=== PATIENT | female | born 2005 | race Caucasian/White ===

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

== ENCOUNTER 2024-11-04 09:40 | Emergency (ER) | payer OTHER, SELFPAY ==
[2024-11-04 09:56] VITALS: BP 109/71; PULSE 105; RESP 16; TEMP 37.4; O2SAT 100
--- NOTE | 2024-11-04 10:07 | ED_ITS ---
HPI - URI/Sore Throat General Chief Complaint: Upper Respiratory Infection Stated Complaint: SORE THROAT Source: patient Mode of arrival: ambulatory Limitations: no limitations History of Present Illness HPI Narrative: Patient presents to [facility] with complaints of sore throat and congestion for 1 day. She has not been taking anything [id number]. Denies any shortness of breath, fevers, nausea, vomiting, or difficulty swallowing. Related Data Allergies Allergy/AdvReac Type Severity Reaction Status Date / Time Penicillins Allergy Mild Rash Verified 11/04/24 09:52 Review of Systems Review of Systems: CONSTITUTIONAL: Denies body aches, fever, chills, or sweats. EYES: Denies visual changes, redness, or discharge. ENT: Reports sore throat. Denies rhinorrhea, congestion, or otalgia. CARDIOVASCULAR: Denies chest pain, palpitations, or edema. RESPIRATORY: Denies dyspnea. GASTROINTESTINAL: Denies abdominal pain, nausea, vomiting, or diarrhea. SKIN: Denies rash. NEUROLOGIC: Denies headache. All systems reviewed & are unremarkable except as noted in HPI and below PMFSH Past Medical History Medical History GERD (gastroesophageal reflux disease) Nausea and vomiting Surgical History Surgical History H/O esophagogastroduodenoscopy Family History Family History Father Diabetes mellitus Social History Social History Smoking status: Never smoker Alcohol intake: current Alcohol use details: occasional use Substance use: current Substance use type: marijuana Other substance usage details: daily marijuana use Do You Feel Safe in your Home?: Yes Lack of Transportation: No Lack of Food: Never True Current Housing: I Have Housing Concerned About Future Housing: No Difficulty Paying Gas/Electric Bills: No Difficulty Paying for Meds: No Currently Unemployed: No Education: Don't Know Living arrangements: with friend(s) Occupation/Education: occupation 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 Please see nursing chart for further information. There is no relevant family history pertinent to the presenting complaint. Exam Narrative: GENERAL: Ill-appearing, ?no acute distress. EYES: ?conjunctivae clear ENT: Mucous membranes moist. TM pearly nobles with normal light reflex bilaterally; no tragal tenderness. Oropharynx erythematous without lesions. Tonsils enlarged and without exudate. No drooling, no hoarseness, no trismus, uvula midline. No tripod positioning, hot potato voice, or soft palate swelling. NECK: Supple. No lymphadenopathy CHEST: Clear to auscultation, breath sounds equal. ?No respiratory distress, speaks in full sentences. HEART: Regular rate and rhythm. No murmur heard. SKIN: Warm, dry, no rash. NEURO: Alert and oriented x3.? Course Course Level of Care: Express Care Visit Vital Signs Vital signs: Vital Signs Temperature 99.4 F 11/04/24 09:56 Pulse Rate 105 H 11/04/24 09:56 Respiratory Rate 16 11/04/24 09:56 Blood Pressure 109/71 11/04/24 09:56 Pulse Oximetry 100 11/04/24 09:56 Temperature 99.4 F 11/04/24 09:56 Pulse Rate 105 H 11/04/24 09:56 Respiratory Rate 16 11/04/24 09:56 Blood Pressure 109/71 11/04/24 09:56 Pulse Oximetry 100 11/04/24 09:56 MDM - URI/Sore Throat MDM Narrative Medical decision making narrative: Discussed physical exam findings. Advised supportive measures and signs/symptoms to go to the ER. Antibiotic given for strep throat. Pt is appropriate for outpatient treatment and follow up. Differential Diagnosis Differential diagnosis: Likely upper respiratory infection, viral infection, pharyngitis and other (strep throat) Lab Data Attestation: I reviewed the patient's lab results. Critical Care Time Critical Care Time Critical Care Time: No Discharge Plan Discharge Clinical Impression: Strep throat Patient Disposition: Home Condition: Stable Instructions: Antibiotic Form, Strep Throat (ED) Additional Instructions: Take antibiotic as prescribed. Recommendations: Flonase spray and Zyrtec for sinus congestion Tylenol every 8 hours as needed for pain/fever Soft foods, cool liquids, warm tea. Gargle with warm saltwater twice a day. Chloraseptic spray and throat lozenges. Rest and stay hydrated. --Follow up with your PCP --Go to the ER immediately if you cannot swallow your saliva, trouble breathing/wheezing, throat swelling, pain is persistent and severe Patient Language: Moldovan Prescriptions: New cephalexin 500 mg capsule 500 mg PO Q12H 10 Days Qty: 20 0RF No Action pantoprazole 40 mg tablet,delayed release (DR/EC) 40 mg PO DAILY Qty: 90 2RF Follow-up/Referrals: Liz Salinas APRN [Primary Care Provider] - Stand Alone Forms: Work/School Release IP Time of Disposition: 10:13
[2024-11-05 11:57] LABS: EDSTREPNEGPOS1 Positive (Negative)
== END 2024-11-04 10:19 | disposition home or self-care (01) ==
PROVIDERS: PCP Nurse Practitioner Family
DX: J02.0 Streptococcal pharyngitis (principal); F12.90 Cannabis use, unspecified, uncomplicated; K21.9 Gastro-esophageal reflux disease without esophagitis
CPT/HCPCS: 87880; 99213; G0463

== ENCOUNTER 2025-06-08 11:33 | Emergency (ER) | payer OTHER, SELFPAY ==
--- NOTE | ~2025-06-08 | XR_ITS ---
Examination: XR ankle RT min 3V Clinical History: injury Comparison: None Technique: 4 views right ankle Findings/impression: 1. No fracture or dislocation right ankle. Reviewed, dictated and finalized at location R. CAL INFORMATION OFFICER
--- OUTSIDE RECORDS SUMMARY | 2025-06-08 11:35 | XMS_ITS | Clinical Summary ---
Author Organization [facility] Address [address] [place] [address] Care Team Providers Care Meal Grinder Tender Name Role Phone None, Provider MD Primary Care Provider Unavaila ble Allergies Active Allergy Reactions Criticality Noted Date Comments Penicillins Rash,Other (see comment) Medium 08/15/2019 Pt states she was told she has been allergic since she was a baby Medications LORazepam (ATIVAN) 1 MG tabletIndicatio ns:Anxiety Take 1 tablet (1 mg total) by mouth every 8 (eight) hours as needed for Anxiety. 10 tablet 3 Active Additional Information Patient not taking.Reported on 09/04/2024 famotidine (PEPCID) 20 MG tablet Take 1 tablet (20 mg total) by mouth nightly at bedtime. 30 tablet 3 Active Additional Information Patient not taking.Reported on 09/04/2024 magnesium-alumi num-simethicone (MYLANTA MAXIMUM STRENGTH) 400-400-40 MG/5ML suspension Take 15 mLs by mouth nightly at bedtime. 355 mL 3 Active Additional Information Patient not taking.Reported on 09/04/2024 clobetasol (TEMOVATE) 0.05 % external solution Apply topically 2 (two) times daily. 5 Active ketoconazole (NIZORAL) 2 % shampoo Apply to wet hair, leave on for 3 minutes, then rinse; three times weekly. 30 days supply 5 Active pantoprazole EC (PROTONIX) 40 MG tablet Take 1 tablet (40 mg total) by mouth daily. Active Active Problems No known active problems Immunizations Immunization Administration Dates Next Due Daptacel 04/19/2005 Dtap 02/19/2009, 7,06/24/2005,02/02 FLUCELVAX (ccIIV3, TRIVALENT, 0.5mL) 07/24/2024 Flumist (Intranasal LAIV4) 05/08/2015,03/27/2014 Flumist (Intranasal) 04/12/2013,05/18/20 12,06/03/2011,09/2010 HPV GARDASIL 9-VALENT 07/21/2018,04/21/2018,02/2017 Hepatitis A (Generic) 12/26/2006,03/24/2006 Hepatitis A (Havrix [address]) 03/24/2006 Hepatitis B Pediatric 09/20/2005,01/25/2005,12/03 Hib 07/19/2006, 5,04/19/2005,02/02 Hib (Generic) 07/19/2006, 5,04/19/2005,02/02 Influenza (FluMist) 05/08/2015,03/27/2014 Influenza (Generic) 06/03/2011, 1,03/26/2009,11/2007,05/02/2007,06/24/2005 Influenza Adult (Generic) 05/07/2020,12/2018,04/21/2018,11/2016,06/04/2016 Ipol (Polio Vaccine) 04/19/2005 MENINGOCOCCAL A C Y&W-135 oligosaccharide (MENVEO) 04/08/2022 MMR 02/19/2009,12/23/2005 Menactra 12/29/2015 Polio IPV (Ipol) 02/19/2009, 6,04/19/2005,02/02 Prevnar(Pcv 7) 12/23/2005, 5,04/19/2005,02/02 Tdap (Adacel) 12/29/2015 Varicella (Generic) 02/19/2009,03/24/2006 Family History Medical History Relation Comments Mental Health Paternal Grandmother Relation Status Comments Paternal Grandmother Social History Tobacco Use Types Packs/Day Years Used Date Smoking Tobacco: Never Smokeless Tobacco: Never Tobacco Cessation:Counseling Given: No Alcohol Use Standard Drinks/Week Comments Not Currently 0 (1 standard drink = 0.6 oz pur e alcohol) AUDIT-C Answer Date Recorded Frequency of Alcohol Consumption Never 04/22/2019 Average Number of Drinks Not on file 019 Frequency of Binge Drinking Not on file 04/04 Comments No Sex and Gender Information Value Date Recorded Sex Assigned at Not on file Legal Sex Female 5:01 PM CDT Gender Identity Not on file Sexual Orientation Not on file Last Filed Vital Signs Vital Sign Reading Time Taken Comments Blood Pressure 126/80 09/04/2024 1:37 PM HAZARDOUS MATERIAL SPECIALIST Pulse 95 09/04/2024 1:37 PM HAZARDOUS MATERIAL SPECIALIST Temperature 36.8 C (98.2 F) 09/04/2024 1:37 PM HAZARDOUS MATERIAL SPECIALIST Respiratory Rate 16 09/04/2024 1:37 PM HAZARDOUS MATERIAL SPECIALIST Oxygen Saturation 100% 09/04/2024 1:37 PM HAZARDOUS MATERIAL SPECIALIST Inhaled Oxygen Concentration - - Weight 59.2 kg (130 lb 9.6 oz) 09/04/2024 1:37 P M HAZARDOUS MATERIAL SPECIALIST Height 157.5 cm (5' 2) 09/04/2024 1:37 PM HAZARDOUS MATERIAL SPECIALIST Body Mass Index 23.89 09/04/2024 1:37 PM HAZARDOUS MATERIAL SPECIALIST Plan of Treatment Health Maintenance Due Date Last Done Comments Annual Physical 12/23/2007 Meningococcal B Vaccine (1 of 2 - Standard) 2020 Hepatitis C 2022 PHQ-2 (Physician Corry) 07/04/2024 COVID-19 Vaccine ( - season) 2025 Influenza Adult (#1) 2025 07/24/2024, 05/07/2020, 05/09/2019, Additional history exists DTaP, Tdap and Td Vaccines (7 - Td or Tdap) 12/28/2025 12/29/2015, 02/19/2009, 07/13/2006, Additional history exists Hepatitis B Vaccines Completed 09/20/2005, 01/25/2005, 2004 Hepatitis A Vaccines Completed 12/26/2006, 03/24/2006, 03/24/2006 HPV Vaccines Completed 07/21/2018, 04/03, 12/09/2016 Meningococcal Vaccine Completed 04/08/2022, 016 Pneumococcal Vaccine: Pediatrics (0 to 5 Years) and At-Risk Patients (6 to 49 Years) Aged Out No longer eligible based on patient's age to complete this topic RSV Immunizations Under 20 Months Aged Out No longer eligible based on patient's age to complete this topic Insurance [facility] [id number] [place] [id number] Care Teams Meal Grinder Tender Relationship Specialty Start Date End Date None, Provider, PCP - General UNKNOWN PHYSICIAN SPECIALTY 04/09/23
[2025-06-08 11:45] VITALS: BP 130/69; PULSE 116; RESP 16; TEMP 36.4; O2SAT 100
--- NOTE | 2025-06-08 11:45 | ED.LOWEXIN ---
HPI - Extremity Injury (Lower) General Chief Complaint: Extremity Problem,Nontraumatic Stated Complaint: fall Time Seen by Provider: 06/08/25 11:45 Source: patient and RN notes reviewed Mode of arrival: ambulatory Limitations: no limitations History of Present Illness HPI Narrative: 19-year-old female presents with concern for right ankle pain. Reports this morning she stepped in a hole and twisted her ankle. She reports mild pain at rest, worsening pain with flexion and weight-bearing. She took 2 epic profile. MD complaint: ankle injury Related Data Allergies Allergy/AdvReac Type Severity Reaction Status Date / Time Penicillins Allergy Mild Rash Verified 06/08/25 11:45 Review of Systems Review of Systems: CONSTITUTIONAL: Denies malaise, chills, sweats, or fever. SKIN: Denies rash or itching, open skin, laceration, abrasion, redness, warmth MUSCULOSKELETAL: Reports right ankle pain pain NEUROLOGIC: Denies numbness, weakness All systems reviewed & are unremarkable except as noted in HPI and below PMFSH Past Medical History Medical History Nausea and vomiting GERD (gastroesophageal reflux disease) Surgical History Surgical History H/O esophagogastroduodenoscopy Family History Family History Father Diabetes mellitus Social History Social History Smoking status: Never smoker Alcohol intake: current Alcohol use details: occasional use Substance use: current Substance use type: marijuana Other substance usage details: daily marijuana use Lack of Transportation: No Lack of Food: Never True Current Housing: I Have Housing Concerned About Future Housing: No Difficulty Paying Gas/Electric Bills: No Difficulty Paying for Meds: No Currently Unemployed: No Education: Don't Know Living arrangements: with friend(s) Occupation/Education: occupation 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 There is no relevant family history pertinent to the presenting complaint Exam Narrative: GENERAL: Well-appearing, well-nourished, and in no acute distress. HEAD: Normocephalic, atraumatic. EYES: PERRLA, conjunctivae clear NECK: Supple. CHEST: Speaks in full sentences. No respiratory distress. HEART: Regular rate and rhythm. Normal and equal peripheral pulses. EXTREMITIES: Right ankle, foot, digits have grossly normal strength and sensation, grossly normal range of motion. No edema, mild lateral ecchymosis. Normal sensation with sensitivity to light touch and pain. No point tenderness. No open wounds, no skin tenting, no devitalized tissue or atrophy, no trophic changes, no obvious deformity, alignment normal, nearby joints and structures intact. Distal pulses palpable and equal bilaterally, skin warm, dry, pink. Capillary refill less than 3 seconds. SKIN: Warm, dry, no rash. NEURO: Alert and oriented x3. PSYCH: Normal mood and affect Course Course Level of Care: Express Care Visit MDM Differential Diagnosis Differential Diagnosis: I evaluated this patient in the express care. History is obtained from patient who is an independent historian and physical exam was performed.? Available medical records were reviewed. ? Exam findings and relevant testing show no acute concerns or changes; patient is non-toxic appearing and is in no distress. ? Patients injury and/or pain is consistent with musculoskeletal etiology. No signs of neurological or vascular compromise on exam. Compartments and tissues are soft without signs of compartment syndrome. Pain is felt appropriate for further evaluation on an outpatient basis. Differential diagnosis and treatment plan were discussed with the patient. Patient agrees with discussion and after shared medical decision making agrees with plan of care. All questions were answered to the patient's satisfaction. Patient is appropriate for outpatient treatment and follow-up. Imaging Data My impression: Images reviewed, interpreted by radiologist, agree, see report. Radiologist's impression: Examination: XR ankle RT min 3V Clinical History: injury Comparison: None Technique: 4 views right ankle Findings/impression: 1. No fracture or dislocation right ankle. Discharge Plan Discharge Clinical Impression: Ankle sprain Patient Disposition: Home Condition: Stable Instructions: Ankle Sprain (ED) Additional Instructions: Your x-ray looks normal Avoid activities that cause pain until the pain subsides. Ice to the area 20-30 minutes 4-6 times a day Elevate above heart Elastic wrap as directed for comfort for the next 5-7 days Tylenol for lesser pain Ibuprofen regularly for the next 2-3 days for the inflammation Follow up with your primary care provider if the condition is not improving within 1 week. If the condition worsens with numbness, tingling, decrease sensation with weakness seek treatment in the emergency room immediately. Patient Language: Faroese Prescriptions: No Action pantoprazole 40 mg tablet,delayed release (DR/EC) 40 mg PO DAILY Qty: 90 2RF Follow-up/Referrals: Liz Salinas APRN [Primary Care Provider, Family Practice] Stand Alone Forms: Work/School Release IP Time of Disposition: 12:14
== END 2025-06-08 12:22 | disposition home or self-care (01) ==
PROVIDERS: Emergency Provider Nurse Practitioner; PCP Nurse Practitioner Family
DX: S93.401A Sprain of unspecified ligament of right ankle, initial encounter (principal); X50.1XXA Overexertion from prolonged static or awkward postures, initial encounter; F12.90 Cannabis use, unspecified, uncomplicated; K21.9 Gastro-esophageal reflux disease without esophagitis
CPT/HCPCS: 73610; 99213; G0463